=== PATIENT | female | born 1965 | race Caucasian/White ===

== ENCOUNTER → 2018-06-27 14:53 | Outpatient (CLI) | payer MEDICAID, SELFPAY ==
--- NOTE | 2018-06-27 15:03 | US_ITS ---
US transvaginal HISTORY: ITS.REASON: PELVIC PAIN ORDERING PHYSICIAN: Daisy Caban PATIENT AGE: 53 years Comparison: None FINDINGS: The uterus measures 7 x 3 x 4 cm with a combined endometrial thickness of 4 mm. There are multiple nabothian cysts present. No uterine mass is evident. The ovaries have an unremarkable appearance. No adnexal mass. No cul-de-sac fluid. IMPRESSION: Nabothian cysts otherwise unremarkable pelvic ultrasound.
== END ==
PROVIDERS: PCP Nurse Practitioner Family; Visit Provider Nurse Practitioner Family
DX: R10.2 Pelvic and perineal pain (principal)
CPT/HCPCS: 76830

== ENCOUNTER → 2018-10-12 14:16 | Outpatient (CLI) | payer MEDICAID, SELFPAY ==
--- NOTE | 2018-10-12 14:22 | XR_ITS ---
XR chest 2V HISTORY: . Patient feels a knot between her breast. Injury to the xiphoid ITS.REASON: CHEST PAIN ORDERING PHYSICIAN: Daisy Caban APRN PATIENT AGE: 53 years Technique: PA and lateral chest COMPARISON: AP portable chest 06/26/[address] abdomen pelvis January 2017, which includes lung bases . FINDINGS: Nothing definitely acute of the lungs appear well expanded and clear. Stable benign calcified granuloma project over the posterior left fifth rib again noted. Subtle coarsening of markings toward the left infrahilar region left base appears similar to previous portable chest film 2010 The ribs appear intact. Chest wall and T-spine unremarkable. The 8 tiny BB marker was placed over the palpable knot between breast. No significant findings here on plain film. Overlies the soft tissues anterior to the region of the xiphoid.. No pleural effusion. No pneumothorax. IMPRESSION...... stable chest nothing definitely acute. Minor chronic changes toward lung bases. Lungs are clear. No plain film findings associated with the palpable area at soft tissues overlying the region of xiphoid
== END ==
PROVIDERS: PCP Nurse Practitioner Family; Visit Provider Nurse Practitioner Family
DX: R07.89 Other chest pain (principal)
CPT/HCPCS: 71046

== ENCOUNTER → 2019-02-26 09:00 | Outpatient (CLI) | payer MEDICAID, SELFPAY ==
--- NOTE | 2019-02-26 11:13 | CT_ITS ---
PROCEDURE: CT ABDOMEN PELVIS WO CON CLINICAL INDICATION: H/O KIDNEY DISEASE,POSSIBLE RENAL CALCULI Right-sided flank pain with hematuria COMPARISON: ABDPELW/O CT ABD PELVIS W/O CONTRAST from 01/30/2017 TECHNIQUE: Axial images obtained with sagittal and coronal reformats. All CT scans at the facility use one or more dose reduction, viz: automated exposure control, ma/kV adjustment per patient size (including targeted exams where dose is matched to indication, i.e. head), or iterative reconstruction technique. FINDINGS: LOWER THORAX: No acute finding ABDOMEN & PELVIS: There is a 4 mm hypodensity in the left hepatic lobe laterally nonspecific too small to categorize. The liver is otherwise unremarkable. The gallbladder, spleen, adrenal glands, and pancreas show no acute finding. There is some mild nodularity of left adrenal gland not significantly changed measuring near water density. There are 2 small stones in the lower pole of the left kidney measuring 2 and 3 mm. No right renal calculi. No hydronephrosis. No ureteral calculi. The urinary bladder has an unremarkable appearance. No evidence of appendicitis intestinal obstruction, or free air. There are scattered diverticula of the descending and sigmoid colon but no evidence of diverticulitis. There are bilateral tubal ligation clips. No pelvic mass abnormal fluid collection or focal inflammatory change evident of the pelvis. No acute bony anomalies IMPRESSION: The 1. No acute abdominal or pelvic findings. 2. Nonobstructing punctate left renal calculi 3. Colonic diverticulosis. No evidence of diverticulitis Dictated by: Robert Mcgowan MD 02/26/2019 12:33 Electronically signed by Robert Mcgowan MD in [facility] 02/26/2019 12:33
== END ==
PROVIDERS: PCP Nurse Practitioner Family; Visit Provider Nurse Practitioner Family
DX: R31.21 Asymptomatic microscopic hematuria (principal)
CPT/HCPCS: 74176

== ENCOUNTER → 2020-05-29 17:40 | Outpatient (CLI) | payer MEDICAID, SELFPAY ==
[2020-05-29 18:07] LABS: Basophils # 0.1 K/mm3 (0-0.2); Basophils % 0.6 % (0.1-2.0); Eosinophils # 0.2 K/mm3 (0.0-0.4); Eosinophils % 2.3 % (0.1-12.0); Hematocrit 48.8 % (37.0-47.0); Lymphocytes # 2.7 K/mm3 (0.7-4.5); Lymphocytes % 29.1 % (10-50); Mean Corpuscular HGB Conc 32.7 g/dL (31.8-35.4); Mean Corpuscular Hemoglobin 29.4 pg (27.0-31.2); Mean Corpuscular Volume 89.8 fl (81-99); Mean Platelet Volume 10.9 fl (7.4-10.4); Monocytes # 0.4 K/mm3 (0.1-1.0); Monocytes % 4.3 % (1.7-9.3); Neutrophils # 5.9 K/mm3 (1.8-7.8); Neutrophils % 63.6 % (37.0-80.0); Platelet Count 264 K/mm3 (142-424); Red Blood Count 5.43 M/mm3 (4.20-5.40); Red Cell Distribution Width 13.3 % (11.5-17.5); White Blood Count 9.3 K/mm3 (4.8-10.8)
[2020-05-29 18:38] LABS: Alanine Aminotransferase 16 U/L (12-78); Albumin Level 4.4 g/dl (3.5-5.0); Albumin/Globulin Ratio 1.2 (1.1-1.8); Alkaline Phosphatase 122 U/L (38-126); Anion Gap 10.9 mEq/L (5-15); Aspartate Amino Transferase 24 U/L (14-36); Bilirubin,Total 0.4 mg/dl (0.2-1.3); Blood Urea Nitrogen 13 mg/dl (7-17); Calcium 9.8 mg/dl (8.4-10.2); Carbon Dioxide 31 mmol/L (22.0-30.0); Chloride 105 mmol/L (98-107); Chol/HDL Ratio 6.2 (1-3.5); Cholesterol 311 mg/dl (140-200); Estimated Glomerular Filt Rate 74 ml/min (>60); GFR (African American) 90 ML/MIN (>60); Globulin 3.8 g/dL (1.3-3.2); Glucose 107 mg/dl (74-100); HDL Cholesterol 50 mg/dl (40-60); Potassium 4.9 mmoL/L (3.5-5.1); Sodium 142 mmol/L (136-145); Total Protein,Serum 8.2 g/dl (6.3-8.2); Triglycerides 319 mg/dl (30-150); VLDL Cholesterol 64 mg/dL (0-40)
[2020-05-29 18:55] LABS: Direct LDL Cholesterol 182.58 mg/dL (100-129)
[2020-05-29 19:10] LABS: Thyroid Stimulating Hormone 2.02 uIU/mL (0.465-4.68)
== END ==
PROVIDERS: Visit Provider Family Medicine
DX: M79.7 Fibromyalgia (principal); M25.511 Pain in right shoulder; D17.9 Benign lipomatous neoplasm, unspecified; Z82.0 Family history of epilepsy and other diseases of the nervous system
CPT/HCPCS: 80053; 80061; 84443; 85025

== ENCOUNTER 2020-09-22 04:17 | Emergency (ER) | payer MEDICAID, SELFPAY ==
[2020-09-22] VITALS (8 sets, daily range): BP systolic 117–128; BP diastolic 70–90; PULSE 71–81; RESP 12–20; TEMP 36.7–36.8; O2SAT 94–99; BMI 38.1
--- NOTE | 2020-09-22 04:28 | ECG_ITS ---
APPROVED REPORT Exam: Resting ECG HR:87 bpm ECG Measurements Heart Rate 87 AXES [place] 130 P 51 QRSd 90 QRS 52 QT 366 T 40 QTc 440 Conclusion Normal sinus rhythm Normal ECG Electronically signed by : Kenrick Willis, 09/22/2020 19:50:01
--- NOTE | 2020-09-22 04:40 | XR_ITS ---
PROCEDURE INFORMATION: Exam: XR Chest Exam date and time: 09/22/2020 4:40 AM Age: 55 years old Clinical indication: Angina pectoris; Patient HX: Abdominal pain TECHNIQUE: Imaging protocol: XR of the chest. Views: 2 views. COMPARISON: CR (CHEST LATERAL, CHEST, CHEST LATERAL) 10/12/2018 2:32 PM FINDINGS: Lungs: There is mild bronchial wall thickening raising the question of airway inflammation. There is no consolidation. A few small calcified granulomas are incidentally noted. Pleural spaces: There is no pleural effusion or pneumothorax. Heart/Mediastinum: The cardiac silhouette and mediastinal contours are unremarkable. Bones/joints: The bones are intact. IMPRESSION: Mild bronchial wall thickening suggesting airway inflammation. Clinical correlation advised.
--- NOTE | 2020-09-22 04:40 | CT_ITS ---
PROCEDURE INFORMATION: Exam: CT Abdomen And Pelvis With Contrast Exam date and time: 09/22/2020 4:40 AM Age: 55 years old Clinical indication: Abdominal pain; Generalized; Additional info: Abd pain TECHNIQUE: Imaging protocol: Computed tomography of the abdomen and pelvis with contrast. Radiation optimization: All CT scans at this facility use at least one of these dose optimization techniques: automated exposure control; mA and/or kV adjustment per patient size (includes targeted exams where dose is matched to clinical indication); or iterative reconstruction. Contrast material: ISOVUE; Contrast volume: 75 ml; Contrast route: IV; COMPARISON: CT ABDOMEN PELVIS WO CON 02/26/2019 11:27 AM FINDINGS: Lungs: Lung bases are grossly clear. Liver: Hepatic steatosis. Gallbladder and bile ducts: Unremarkable without gallstones. No intra or extrahepatic ductal dilation. Pancreas: No peripancreatic inflammatory infiltration or fluid. No ductal dilation. Spleen: No splenomegaly or splenic mass. Adrenal glands: Normal. No mass. Kidneys and ureters: There is punctate left nephrolithiasis but no hydronephrosis or ureteral stone identified. Stomach and bowel: Scattered diverticulosis but no convincing evidence of diverticulitis. No small bowel obstruction or ileus. Appendix: No evidence of appendicitis. No appendicolith. Intraperitoneal space: No free fluid, free air or focal inflammatory infiltration. Vasculature: No abdominal aortic aneurysm. The portal, splenic and superior mesenteric veins appear patent. Lymph nodes: No enlarged lymph nodes within the retroperitoneal space or mesentery. Urinary bladder: Unremarkable as visualized. Reproductive: Unremarkable as visualized. Bones/joints: Unremarkable. No acute fracture. No osteolytic or blastic bone lesions. Soft tissues: Paraspinous and extracorporeal soft tissues are unremarkable. IMPRESSION: 1. Diverticulosis without definite diverticulitis. 2. Punctate left nephrolithiasis. 3. Mild hepatic steatosis.
[2020-09-22 05:12] LABS: Alanine Aminotransferase 15 U/L (12-78); Albumin Level 4.2 g/dl (3.5-5.0); Anion Gap 9.2 mEq/L (5-15); Aspartate Amino Transferase 21 U/L (14-36); Bilirubin,Total 0.4 mg/dl (0.2-1.3); Blood Urea Nitrogen 18 mg/dl (7-17); Calcium 9.3 mg/dl (8.4-10.2); Carbon Dioxide 30 mmol/L (22.0-30.0); Chloride 104 mmol/L (98-107); Creatinine Clearance Estimated 108 mL/min (50-200); Estimated Glomerular Filt Rate 57 ml/min (>60); GFR (African American) 69 ML/MIN (>60); Glucose 109 mg/dl (74-100); Potassium 4.2 mmoL/L (3.5-5.1); Sodium 139 mmol/L (136-145); Total Protein,Serum 7.7 g/dl (6.3-8.2)
[2020-09-22 05:13] LABS: Albumin/Globulin Ratio 1.2 (1.1-1.8); Alkaline Phosphatase 89 U/L (38-126); Amylase 60 U/L (30-110); Globulin 3.5 g/dL (1.3-3.2); Lipase 183 U/L (23-300)
[2020-09-22 05:18] LABS: C-Reactive Protein 7.9 mg/L (0-4)
[2020-09-22 05:20] LABS: Basophils # 0.1 K/mm3 (0-0.2); Basophils % 0.6 % (0.1-2.0); Eosinophils # 0.2 K/mm3 (0.0-0.4); Eosinophils % 2.2 % (0.1-12.0); Hematocrit 42.6 % (37.0-47.0); Hemoglobin 14.5 g/dL (12.2-16.2); Lymphocytes # 3.5 K/mm3 (0.7-4.5); Mean Corpuscular Hemoglobin 29.4 pg (27.0-31.2); Mean Corpuscular Volume 86.4 fl (81-99); Mean Platelet Volume 9.1 fl (7.4-10.4); Monocytes # 0.5 K/mm3 (0.1-1.0); Monocytes % 5.3 % (1.7-9.3); Neutrophils # 4.5 K/mm3 (1.8-7.8); Neutrophils % 51.9 % (37.0-80.0); Platelet Count 216 K/mm3 (142-424); Red Blood Count 4.93 M/mm3 (4.20-5.40); Red Cell Distribution Width 12.9 % (11.5-17.5); White Blood Count 8.7 K/mm3 (4.8-10.8)
--- NOTE | 2020-09-22 05:26 | PC.NURSE ---
to xray for scan at this time via [facility]
[2020-09-22 05:32] LABS: Procalcitonin 0.038 ng/mL (0.0-2.0)
--- NOTE | 2020-09-22 05:39 | PC.NURSE ---
pt back from ct via [facility] and radiation therapy technician. no incidents noted. sent to br to void at this time. pt continues to state pain is under control
[2020-09-22 05:41] LABS: Troponin I < 0.01 ng/ml (0.00-0.034)
[2020-09-22 05:51] LABS: Microscopic, Urine URINE MICROSCOPIC (MICROSCOPIC)
[2020-09-22 05:54] LABS: Appearance,Urine CLEAR (Clear); Bilirubin,Urine Negative (Negative); Blood, Urine Negative (Negative); Color,Urine YELLOW (Yellow); Glucose,Urine (UA) Negative (Negative); Ketones,Urine Negative (Negative); Leukocyte Esterase,Urine Negative (Negative); Nitrate,Urine Negative (Negative); Protein,Urine Negative (Negative); Urobilinogen,Urine 0.2 EU/dl (0.2)
[2020-09-22 06:05] LABS: Amorphous Sediment,Urine 1+ /lpf; Bacteria,Urine 1+ /lpf; Mucus,Urine 1+ /lpf
[2020-09-22 06:12] LABS: Erythrocyte Sedimentation Rate 20 mm/hr (0-30)
--- NOTE | 2020-09-22 06:26 | US_ITS ---
PROCEDURE: US GALLBLADDER CLINICAL INDICATION: ruq pain COMPARISON: CT CT ABDOMEN PELVIS W CON from 09/22/2020 FINDINGS: Pancreas: Pancreas is not well delineated due to overlying bowel gas. CT without and with contrast with pancreatic protocol may provide further evaluation if clinically desired. Liver: Unremarkable. There is appropriate direction of blood flow within a non dilated portal vein. Right kidney: Unremarkable appearing. No hydronephrosis. Gallbladder: No stones are evident. There is no gallbladder wall thickening. Common duct is normal in diameter. IMPRESSION: Negative gallbladder ultrasound. No stones evident. Dictated by: Robert Mcgowan MD 09/22/2020 08:04 Robert Mcgowan MD in [facility] 09/22/2020 08:04
--- NOTE | 2020-09-22 06:45 | HMH.EDNVD ---
ED Disposition Clinical Impression: Abdominal pain Qualifiers: Abdominal location: right upper quadrant Qualified Code(s): R10.11 - Right upper quadrant pain Disposition: Home, Self-Care Condition on Discharge: Good Instructions: DI for Acute Abdominal Pain Additional Instructions: see dr mccann for follow up Referrals: Akshat Maciel MD [Primary Care Provider] - - Critical Care Critical Care Time: No Attestation: On 09/22/20, the high probability of a clinically significant, sudden or life threatening deterioration of the following system(s) required my full and direct attention, intervention and personal management. The time I documented below is in addition to time spent performing reported procedures but includes the following listed in this critical care notation. Medical Decision Making - Medical Records Medical records reviewed: Yes: I reviewed the patient's medical records. - Girma Inquiry Pt receiving controlled substance: No Vital Signs: 09/22/20 04:26 09/22/20 05:00 09/22/20 05:45 Temperature 98.0 F Temperature Source Oral Pulse Rate 73 79 Pulse Rate [Right Brachial] 81 Respiratory Rate 16 12 Blood Pressure 119/74 121/86 Blood Pressure [Right Arm] 128/90 Blood Pressure Mean 96 Blood Pressure Mean [Right Arm] 102 Blood Pressure Source Automatic Cuff Blood Pressure Source [Right Arm] Automatic Cuff Blood Pressure Position Sitting Blood Pressure Position [Right Arm] Sitting 02 Sat by Pulse Oximetry 99 99 96 Oxygen Delivery Method Room Air Room Air 09/22/20 06:00 09/22/20 06:31 09/22/20 07:01 Temperature Temperature Source Pulse Rate 79 73 77 Pulse Rate [Right Brachial] Respiratory Rate Blood Pressure 127/80 121/75 117/70 Blood Pressure [Right Arm] Blood Pressure Mean 92 90 93 Blood Pressure Mean [Right Arm] Blood Pressure Source Blood Pressure Source [Right Arm] Blood Pressure Position Blood Pressure Position [Right Arm] 02 Sat by Pulse Oximetry 96 97 94 L Oxygen Delivery Method 09/22/20 07:31 Temperature Temperature Source Pulse Rate 71 Pulse Rate [Right Brachial] Respiratory Rate 20 Blood Pressure 122/73 Blood Pressure [Right Arm] Blood Pressure Mean 91 Blood Pressure Mean [Right Arm] Blood Pressure Source Blood Pressure Source [Right Arm] Blood Pressure Position Blood Pressure Position [Right Arm] 02 Sat by Pulse Oximetry 96 Oxygen Delivery Method - Lab Data Lab results reviewed: Yes: I reviewed the patient's lab results. Lab Results 09/22/20 04:28: WBC 8.7, RBC 4.93, Hgb 14.5, Hct 42.6, MCV 86.4, MCH 29.4, MCHC 34.0, RDW 12.9, Plt Count 216, MPV 9.1, Neut % (Auto) 51.9, Lymph % (Auto) 40.0, [place] % (Auto) 5.3, Eos % (Auto) 2.2, Baso % (Auto) 0.6, Neut # (Auto) 4.5, Lymph # (Auto) 3.5, [place] # (Auto) 0.5, Eos # (Auto) 0.2, Baso # (Auto) 0.1, ESR 20 09/22/20 04:28: Sodium 139, Potassium 4.2, Chloride 104, Carbon Dioxide 30, Anion Gap 9.2, BUN 18 H, Creatinine 1.00, Estimated Creat Clear 108, Estimated GFR 57 L, Est GFR ( Amer) 69, Glucose 109 H, Calcium 9.3, Total Bilirubin 0.4, AST 21, ALT 15, Alkaline Phosphatase 89, Troponin I < 0.01, C-Reactive Protein 7.9 H, Total Protein 7.7, Albumin 4.2, Globulin 3.5 H, Albumin/Globulin Ratio 1.2, Amylase 60, Lipase 183, Procalcitonin 0.038 09/22/20 05:40: Urine Color Yellow, Urine Appearance Clear, Urine pH 6.0, Ur Specific [place] 1.020, Urine Protein Negative, Urine Glucose (UA) Negative, Urine Ketones Negative, Urine Blood Negative, Urine Nitrate Negative, Urine Bilirubin Negative, Urine Urobilinogen 0.2, Ur Leukocyte Esterase Negative, Urine WBC 3-5, Ur Squamous Epith Cells 5-10, Amorphous Sediment 1+, Urine Bacteria 1+, Urine Mucus 1+ Result diagrams: 09/22/20 04:28 09/22/20 04:28 Orders (Tests/Meds): ED MEDICATIONS Generic Name Dose Route Start Last Admin Trade Name Freq PRN Reason Stop Dose Admin Sodium Chloride 8 ml 09/22/20 04:35 Sod[place]
--- NOTE | 2020-09-22 07:05 | PC.NURSE ---
report given to Melly gibson
== END 2020-09-22 08:17 | disposition home or self-care (01) ==
PROVIDERS: Emergency Provider Emergency Medicine; PCP Family Medicine
DX: R10.11 Right upper quadrant pain (principal); R11.0 Nausea; R78.5 Finding of other psychotropic drug in blood; F17.210 Nicotine dependence, cigarettes, uncomplicated; Z79.899 Other long term (current) drug therapy
CPT/HCPCS: 71046; 74177; 76705; 80053; 81001; 82150; 83690; 84145; 84484; 85025; 85651; 86140; 93005; 96365; 96375; 99283; J2405; Q9967

== ENCOUNTER → 2020-10-21 11:44 | Outpatient (CLI) | payer MEDICAID, SELFPAY ==
--- NOTE | 2020-10-21 | CA_ITS ---
APPROVED REPORT Exam: Exercise Treadmill Technologist: Erin Ram, Ht: 4 ft 8 in Wt: 245 lbs BSA: 1.93 m2 HR: 68 bpm BP: 121/57 mmHg Stress Test Details Test: Shukri HR Resting HR: 85 bpm Max Heart Rate (APMHR): 164.598577 bpm Max HR Achieved: 166 bpm Target HR (85% APMHR): 139.045427 bpm % of APMHR: 101.22 Recovery HR: 90 bpm BP Resting BP: 117/67 mmHg Max BP: 137/53 mmHg Recovery BP: 115.0/61.0 mmHg ECG Clinical Exercise duration: 05:45 min Highest Stage Achieved: Exercise capacity: 7.0 METs Stress ECG Conclusion Max HR: 166 Test Stopped Due To: SOA Symptoms: SOA, leg fatigue, No chest pain Arrhythmais/Ectopy: PVC ST-T Changes: <1.5mm ST changes Electronically signed by : Brandon Irwin, 10/22/2020 11:50:18
--- NOTE | 2020-10-21 11:44 | NM_ITS ---
APPROVED REPORT Exam: Nuclear Stress Test Indication: dysrhythmia, hyperlipidemia, tob use, sob Patient Location: Outpatient Stress Tech: Erin Ram [place] Tech:ANDREZ Christensen RT (R)(N)(M) Ht: 5 ft 6 in Wt: 245 lbs Bra Size: c HR: 68 bpm BP: 121/57 mmHg BSA: 2.18 m2 BMI: 39.5 History: dysrhythmia, hyperlipidemia, tob use, sob Procedure: Patient exercised on Shukri protocol 5:45 minutes and sec, resting heart rate 68 bpm, resting blood pressure 121/57 mmHg, with exercise maximum heart rate achived was 166 bpm which is 101 % of the maximum predicted heart rate and blood pressure was 132/80 mmHg. Test was stopped due to soa, leg fatigue. Patient has Adequate exercise capacity, achieved 7.0 METs of workload on treadmill, the blood pressure response to exercise was Adequate. Electrocardiogram Resting electrocardiogram showed sinus rhythm, with exercise there is less than 1.[address] segment depression noted from the baseline EKG. The EKG portion of the exercise Myoview is negative for ischemia. Cardiac Stress and Resting SPECT Images: Cardiac Stress and Resting SPECT images were obtained using technetium 99m Myoview 28.7 mCi stress and 10.32 mCi at rest. Gated SPECT for analysis of segmental wall motion and calculation of the ejection fraction also done. Prone images were also obtained. Cardiac stress and resting SPECT images show uniform myocardial activity without segmental perfusion abnormality, computer derived ejection fraction is 48% with no regional wall motion abnormality, right ventricle is mildly enlarged with normal contractility. Conclusion: 1. The EKG portion of the exercise Myoview is negative for ischemia, patient has adequate exercise capacity achieved 7.0 mets of workload on treadmill, the blood pressure response to exercise was adequate, there was no exercise-induced chest discomfort. 2. No scintigraphic evidence of reversible ischemia seen, computer derived ejection fraction is 48% with no regional wall motion abnormality, right ventricle is mildly enlarged with normal contractility. 3. Normal exercise Myoview study except right ventricle is mildly enlarged with normal contractility. Electronically signed by : Brandon Irwin, 10/22/2020 11:55:03
== END ==
PROVIDERS: PCP Family Medicine; Visit Provider Family Medicine
DX: R07.9 Chest pain, unspecified (principal); R06.00 Dyspnea, unspecified; G47.33 Obstructive sleep apnea (adult) (pediatric); R40.0 Somnolence; R06.83 Snoring; E78.5 Hyperlipidemia, unspecified; R10.11 Right upper quadrant pain; F17.200 Nicotine dependence, unspecified, uncomplicated
CPT/HCPCS: 78452; 93017; 95806; A9502

== ENCOUNTER → 2020-11-17 09:05 | Outpatient (CLI) | payer MEDICAID, SELFPAY ==
--- NOTE | 2020-11-17 09:07 | CA_ITS ---
APPROVED REPORT EXAM: Comprehensive 2D, Doppler, and color-flow Echocardiogram Sterilization Technician: Hyun Ruff, RCS, RVS Ht: 5 ft 6 in Wt: 245lbs BSA: 2.18 BP: 126/70 mmHg Indications: SOB, smoker, obesity 2D Dimensions IVSd 1.08 cm LVEF (Visual) 40.60 % PWd 0.93 cm LA Volume 60.40 mL LVDd 4.38 cm LA Volume Index 27.70 mL/m2 (M/F) 16-34 LVDs 3.52 cm Left Atrium 2.90 cm LVOT 1.87 cm (M/F) 1.5-2.5 M-Mode Dimensions LA Diam 2.87 cm (1.9-4.0) Ao Diam 3.01 cm (2.0-3.7) EPSs 0.75 cm TAPSE 2.00 (<1.7) LV Diastology E Decel Time 303.00 (160-240 msec) E/A Ratio 0.85 MED E' 7.20 (< 7 cm/sec) MED A' 12.60 cm/s E'/MED E' Ratio 7.93 (>14) LAT E' 10.70 (<10 cm/sec) LAT A' 9.20 cm/s E/LAT E' Ratio 5.34 (>14) Aortic Valve LVOT Max 82.00 (70-110 cm/s) LVOT VTI 18.47 cm AoV Peak Marcellus. 122.00 (50-130 cm/s) AO Peak GR. 6.00 mmHg AO Mean GR. 3.20 (<5 mmHg) AO VTI 26.84 (18-25 cm) STALIN (VTI) 1.89 (2.5-4.5 cm2) Mitral Valve MV A Velocity 67.00 (40-130 cm/s) E/A Ratio 0.85 MV Decel. Time 303.00 (160-240 ms) Tricuspid Valve TR P. Velocity 227.00 cm/s RAP Estimate 10.00 mmHg RVSP 30.50 mmHg Left Ventricle Left atrium normal size, left ventricle is normal size, left ventricle wall thickness is left ventricle is normal, there is preserved left ventricular systolic function, visually estimated ejection fraction 55% with no regional wall motion abnormality, grade 1 diastolic dysfunction seen without tissue Doppler evidence of raise left atrial pressure. Right Ventricle Right atrium and right ventricle are normal size and contractility. Aortic Valve Aortic valve is minimally thickened and fibrosed, there is no aortic stenosis or aortic insufficiency. Mitral Valve Mitral valve grossly normal, there is trace mitral regurgitation. Tricuspid Valve Tricuspid grossly normal, there is trace tricuspid regurgitation, tricuspid regurgitation jet velocity is inadequate for calculation of the right ventricular systolic pressure. Pulmonic Valve Pulmonic valve is poorly visualized. Great Vessels Aortic root is normal size. Pericardium No significant pericardial effusion noted. Conclusion 1. Normal left ventricular size, preserved left ventricular systolic function, visually estimated ejection fraction 55% with no regional wall motion abnormality, grade 1 diastolic dysfunction seen without tissue Doppler evidence of raise left atrial pressure. 2. Trace mitral and tricuspid regurgitation. 3. No significant pericardial effusion noted. Electronically signed by : Brandon Irwin, 11/17/2020 19:04:37
== END ==
PROVIDERS: PCP Family Medicine; Visit Provider Internal Medicine Cardiovascular Disease
DX: R06.00 Dyspnea, unspecified (principal); R10.11 Right upper quadrant pain; E78.5 Hyperlipidemia, unspecified; F17.200 Nicotine dependence, unspecified, uncomplicated; R06.83 Snoring; R40.0 Somnolence
CPT/HCPCS: 93306

== ENCOUNTER 2022-11-26 11:25 | Emergency (ER) | payer MEDICAID, SELFPAY ==
[2022-11-26 11:30] VITALS: BP 150/68; PULSE 86; RESP 20; TEMP 36.7; O2SAT 95; BMI 38.6
--- NOTE | 2022-11-26 11:50 | EXP.UTC ---
Discharge Plan Disposition Patient Disposition: Home, Self-Care Condition: Good Prescriptions Prescriptions: New azithromycin [azithromycin] 250 mg tablet 250 mg PO DIRECTED Qty: 6 0RF Rx Instructions: Take two (2) tablets on day #1, then one (1) tablet day #2 thru #5 Referrals Follow up/Referrals: Akshat Maciel MD [Primary Care Provider] - See instructions Activity Restrictions/Add. Instructions Additional Instructions/Restrictions: Start antibiotic patient to take as ordered for a full length of time even if you feel better. Sinus infections do not get better overnight. It may take 2-3 days to notice much improvement so be sure to use conservative measures as discussed for symptoms. Increase fluids Humidifier/vaporizer as needed Tylenol and ibuprofen as needed for fever or pain. If symptoms do not improve or get worse return or be seen in the ER Follow-up with primary care this week Clinical Impressions Clinical Impression: Acute maxillary sinusitis Qualifiers: Recurrence: non-recurrent Qualified Code(s): J01.00 - Acute maxillary sinusitis, unspecified Instructions Patient Instructions: DI for Sinusitis Discharge ED Provider: Jane ([facility])Jerald [facility] [place] HPI General Stated complaint: congestion, cough, h/a Mode of Arrival: Ambulatory Source of Information: Patient Limitations: No Limitations Time Seen by Provider: 11/26/22 11:50 Description of Symptoms (Recalled from Triage Doc. by RN): PATIENT C/O COUGH, HEAD/CHEST CONGESTION, HEADACHE AND HOARSE VOICE HEENT Symptoms (Recalled from RN notes): Yes Resp Symptoms (Recalled from RN notes): Yes Skin Symptoms (Recalled from RN notes): No MS Symptoms (Recalled from RN notes): No Functional Status (Recalled from RN notes): WNL History of Present Illness Provider Complaint: 57 yr old female presents for sinus congestion, thick dark drainage, sinus tenderness, cough, headache and horse voice Related Data Previous Rx's Medication Instructions Recorded azithromycin 250 mg tablet 250 mg PO DIRECTED #6 tabs 11/26/22 Allergies Allergy/AdvReac Type Severity Reaction Status Date / Time Penicillins [PENICILLINS] Allergy Unknown Verified 02/22/22 11:38 Worker's Comp Is this a Worker's Comp case?: No [facility] Disclaimer: The information contained in this section may have been updated after the patient was seen, as this information can be updated by other users. Medical History , UPSETTER) Daytime somnolence Dyspnea Snoring Tobacco dependence syndrome Social History , UPSETTER) Smoking Status: Current every day smoker tobacco type: cigarettes packs per day: 1 alcohol intake: never substance use type: denies use current occupational status: employed Travel in the last 8 weeks: Inside the [place] household members: children housing: house ROS Obtained: Yes All systems reviewed & no additional complaints except as documented Constitutional Constitutional: Reports system reviewed and no additional complaints, except as documented Eyes Eyes: Reports system reviewed and no additional complaints, except as documented ENT Ears, Nose, Mouth, and Throat: Reports system reviewed and no additional complaints, except as documented, Reports as per HPI, Reports nasal congestion, Reports nasal discharge, Reports post nasal drip, Reports sinus pain and Reports sinus pressure Cardiovascular Cardiovascular: Reports system reviewed and no additional complaints, except as documented Respiratory Respiratory: Reports system reviewed and no additional complaints, except as documented, Reports change in phlegm color, Reports chest congestion and Reports cough Musculoskeletal Musculoskeletal: Reports system reviewed and no additional complaints, except as documented Neurologic Neurologic: Reports system reviewed and no additional complaints, exc
[2022-11-26 12:06] VITALS: BP 150/68; PULSE 86; RESP 20; TEMP 36.7; O2SAT 95
== END 2022-11-26 12:11 | disposition home or self-care (01) ==
PROVIDERS: Emergency Provider Nurse Practitioner Family; PCP Family Medicine
DX: J01.00 Acute maxillary sinusitis, unspecified (principal); R51.9 Headache, unspecified; F17.210 Nicotine dependence, cigarettes, uncomplicated; G47.19 Other hypersomnia
CPT/HCPCS: 99204; 99212; G0463